=== PATIENT | female | born 1975 | race Caucasian/White ===

== ENCOUNTER 2018-07-09 21:42 | Emergency (ER) | payer OTHER ==
[~2018-07-09] VITALS: Ht 165.1 cm; Wt 95.3 kg
== END 2018-07-09 22:53 | disposition home or self-care (01) ==
LOC: ER 21:42
DX: G44.209 Tension-type headache, unspecified, not intractable (principal); F06.4 Anxiety disorder due to known physiological condition

== ENCOUNTER 2021-07-02 09:15 | Outpatient (CLI) | payer OTHER | END 2021-07-02 13:43 | disposition home or self-care (01) | LOC: LAB 09:15 | PROVIDERS: ATTEND Obstetrics & Gynecology | DX: R05.9 Cough, unspecified (principal); N91.1 Secondary amenorrhea; R07.9 Chest pain, unspecified ==

== ENCOUNTER 2021-08-01 06:00 | Day surgery (SDC) | payer OTHER ==
[2021-08-01] MEDS ORDERED: CALAN PO (08:37)
[2021-08-01] MEDS ORDERED: FLOVENT IH (08:38)
[2021-08-01] MEDS ORDERED: PEPCID PO (08:39)
[2021-08-01] MEDS ORDERED: PRILOS PO (08:39)
[2021-08-01] MEDS ORDERED: SINGULAIR10 MG PO (08:39)
[2021-08-01] MEDS ORDERED: XYZAL5 MG PO (08:40)
== END 2021-08-01 17:10 | disposition home or self-care (01) ==
LOC: CIR.AMB 06:00 → ADM 08:00 → CIR.AMB 08:00
PROVIDERS: ATTEND Obstetrics & Gynecology
DX: N84.0 Polyp of corpus uteri (principal); I10 Essential (primary) hypertension; Z20.822 Contact with and (suspected) exposure to COVID-19; Z91.048 Other nonmedicinal substance allergy status; Z86.16 Personal history of COVID-19; J45.909 Unspecified asthma, uncomplicated; R13.10 Dysphagia, unspecified; E66.9 Obesity, unspecified

== ENCOUNTER 2021-08-15 19:58 | Emergency (ER) | payer OTHER ==
[~2021-08-15] VITALS: Ht 165.1 cm; Wt 106.1 kg
[~2021-08-15 19:58] MED LIST: CALAN PO; FLOVENT IH; PEPCID PO; PRILOS PO; SINGULAIR10 MG PO; XYZAL5 MG PO
== END 2021-08-16 00:33 | disposition home or self-care (01) ==
LOC: ER 19:58
DX: M77.8 Other enthesopathies, not elsewhere classified (principal); W18.30XA Fall on same level, unspecified, initial encounter; Y93.9 Activity, unspecified; Y92.480 Sidewalk as the place of occurrence of the external cause; Z88.6 Allergy status to analgesic agent; Z91.018 Allergy to other foods; Z91.048 Other nonmedicinal substance allergy status; Z87.09 Personal history of other diseases of the respiratory system; Z87.19 Personal history of other diseases of the digestive system; J45.909 Unspecified asthma, uncomplicated; R13.10 Dysphagia, unspecified

== ENCOUNTER 2022-07-25 09:33 | Outpatient (CLI) | payer OTHER | END 2022-07-25 09:38 | disposition home or self-care (01) | LOC: SONOGRAMA 09:33 | PROVIDERS: ATTEND Pathology Anatomic Pathology & Clinical Pathology | DX: R59.0 Localized enlarged lymph nodes (principal) ==